=== PATIENT | male | born 1995 | race Hispanic/Latino ===

== ENCOUNTER 2018-04-19 12:39 | Emergency (ER) | payer OTHER, SELFPAY ==
[2018-04-19] MEDS ORDERED: Ibuprofen 800 MG TAB ONE (13:16)
[2018-04-19] MEDS ORDERED: HYDROcodone/Acetaminophen 10/325 mg Tablet ONE (13:16)
--- NOTE | 2018-04-19 15:18 | CT ---
CT CERVICAL SPINE WITHOUT CONTRAST: History: Injury. Trauma. Comparison: None. FINDINGS: No acute fracture or malalignment of the cervical spine. There is superior endplate invagination of d isc material at C7. The odontoid process is intact. Occipital condyles are intact. IMPRESSION: No acute fracture or malalignment of the cervical spine. POS: [facility]
== END 2018-04-19 15:30 | disposition home or self-care (01) ==
LOC: BURERS 12:39
DX: M50.323 Other cervical disc degeneration at C6-C7 level (principal)
CPT/HCPCS: 72125

== ENCOUNTER 2021-04-21 11:34 | Emergency (ER) | payer SELFPAY ==
[2021-04-21 12:09] LABS: #Basophils 0.3 thou/uL (0.0-0.2); #Eosinphils 0.1 thou/uL (0.0-0.7); #Lymphocytes 3.3 thou/uL (1.20-3.40); #Neutrophils 8.9 thou/uL (1.40-6.50); %Lymphocytes 24.2 % (21.0-51.0); %Monocytes 7.3 % (0.0-10.0); %Neutrophils 65.5 % (42.0-75.0); Hemoglobin 16.3 g/dL (14.0-18.0); Mean Corpuscular HGB CONC 32.9 g/dL (32.0-36.0); Mean Corpuscular Hemoglobin 31.2 pg (27.0-31.0); Mean Corpuscular Volume 94.9 fL (78.0-98.0); Mean Platelet Volume 8.5 fL (7.4-10.4); Platelet Count 244 thou/uL (130-400); RBC Distribution Width 12.5 % (11.5-14.5); Red Blood Cell (RBC) Count 5.21 mill/uL (4.70-6.10); White Blood Cell (WBC) Count 13.5 thou/uL (4.8-10.8)
[2021-04-21] MEDS ORDERED: Ondansetron PF 4 MG/2 ML Vial ONE (12:13)
[2021-04-21 12:25] LABS: ALT (SGPT) 69 U/L (8-55); AST (SGOT) 39 U/L (5-34); Albumin 4.7 g/dL (3.5-5.0); Alkaline Phosphatase 83 U/L (40-110); Anion Gap 16 mmol/L (10-20); BUN (Urea Nitrogen) 13 mg/dL (8.9-20.6); Bilirubin, Total 0.6 mg/dL (0.2-1.2); CK (CPK) 365 U/L (30-200); Calc. Creatinine Clearance 0 mL/min (70-130); Calcium 8.9 mg/dL (7.8-10.44); Carbon Dioxide 25 mmol/L (22-29); Chloride 100 mmol/L (98-107); Globulin 3.1 g/dL (2.4-3.5); Glucose 124 mg/dL (70-105); Potassium 4.4 mmol/L (3.5-5.1); Protein, Total 7.8 g/dL (6.0-8.3); Sodium 137 mmol/L (136-145)
[2021-04-21 13:36] LABS: Bilirubin Negative (Negative); Blood, Urine Negative (Negative); Clarity Clear (Clear); Glucose, Urine (Dipstick) Negative (Negative); Ketone, Urine Negative (Negative); Leukocyte Negative (Negative); Nitrite Negative (Negative); Protein, Urine (Dipstick) Negative (Neg-Trace)
== END 2021-04-21 13:10 | disposition home or self-care (01) ==
LOC: BURERS 11:34
DX: T67.2XXA Heat cramp, initial encounter (principal); M62.82 Rhabdomyolysis
CPT/HCPCS: 36415; 80053; 81003; 82550; 85025; 96374; J2405

== ENCOUNTER 2024-11-05 13:56 | Emergency (ER) | payer OTHER, SELFPAY ==
[2024-11-05] MEDS ORDERED: Acetaminophen 500 MG TAB ONE (14:18)
== END 2024-11-05 14:26 | disposition home or self-care (01) ==
LOC: BURERS 13:56
DX: H92.01 Otalgia, right ear (principal); H73.891 Other specified disorders of tympanic membrane, right ear
CPT/HCPCS: 99282